=== PATIENT | male | born 1965 ===

== ENCOUNTER 2019-01-19 22:53 | Emergency (ER) | payer SELFPAY ==
[2019-01-19] MEDS: Midazolam 1 MG/ML 5 ML SDV IVPUSH SCH (22:53)
[2019-01-19] MEDS: Sodium Chloride 0.9% 1,000 ML IV ONE ×2 (22:53→23:54)
[2019-01-19] MEDS ORDERED: fentaNYL 250 MCG/5 ML SDV IVPUSH ONE ×2 (23:00)
[2019-01-19] MEDS: fentaNYL 100 MCG/2 ML SDV IVPUSH PRN ×2 (23:08→23:37)
[2019-01-20] MEDS: fentaNYL 100 MCG/2 ML SDV IVPUSH PRN ×3 (00:10→01:18)
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
[2019-01-20] MEDS ORDERED: Midazolam 1 MG/ML 5 ML SDV IVPUSH PRN (03:29)
[2019-01-20] MEDS ORDERED: Succinylcholine 200 MG/10 ML MDV IV PRN (03:31)
[2019-01-20] MEDS ORDERED: Succinylcholine 200 MG/10 ML MDV IV SCH (03:53)
[2019-01-20] MEDS: Midazolam 1 MG/ML 5 ML SDV IVPUSH SCH (04:34)
--- NOTE | 2019-01-20 08:36 | CT ---
DATE OF SERVICE: 01/19/19 CLINICAL DATA: TRAUMA. UNENHANCED BRAIN CT: Multislice acquisition through the brain without IV contrast was performed. No priors. There are periventricular lucencies bilaterally consistent with small vessel ischemic change. No masses or mass effect. No intracranial hemorrhage. No evidence of acute or subacute infarct. There is soft tissue swelling of the scalp in the right frontal region and it is hyperdense consistent with a cephalohematoma. No fractures. There is fluid in the left maxillary sinus. IMPRESSION: No acute intracranial abnormalities. Other findings as discussed above. [id number] [facility]
--- NOTE | 2019-01-20 08:38 | CR ---
DATE OF SERVICE: 01/19/19 CLINICAL DATA: TRAUMA. AP PORTABLE CHEST: No priors. The lung apices are cut off. There is endotracheal tube in place with its distal tip just above the rafael. The heart size is normal. The visualized lungs are clear. No pneumothorax. No pleural effusions. No displaced fractures. [id number] MTDD
--- NOTE | 2019-01-20 08:40 | CT ---
DATE OF SERVICE: 01/19/19 CLINICAL DATA: TRAUMA. CERVICAL SPINE CT: Multislice axial acquisition was performed. No priors. There is an endotracheal tube in place. No acute fracture or dislocation. No lytic or blastic bone lesions. There is degenerative disk disease at the C5-6 and C6-7 levels. There are degenerative changes involving the atlantoaxial articulation. There is mucosal thickening and fluid within the left maxillary sinus. [id number] MTDD
== END 2019-01-20 01:39 ==
LOC: LB.ED 22:53
DX: S06.9X9A Unspecified intracranial injury with loss of consciousness of unspecified duration, initial encounter (principal); F10.929 Alcohol use, unspecified with intoxication, unspecified; S01.511A Laceration without foreign body of lip, initial encounter; K92.0 Hematemesis; W10.1XXA Fall (on)(from) sidewalk curb, initial encounter; Y90.6 Blood alcohol level of 120-199 mg/100 ml
CPT/HCPCS: 31500; 36415; 51702; 70450; 71045; 72125; 80053; 80307; 85025; 99285; A0425; A0429; G0480; J0330; J2250; J3010; J7030; J3490